=== PATIENT | female | born 1990 | race American Indian/Alaskan Native ===

== ENCOUNTER 2017-08-16 15:23 | Emergency (ER) | payer SELFPAY ==
[2017-08-16 15:30] VITALS: BP 122/79
--- NOTE | 2017-08-16 16:40 | Emergency Department Report ---
HPI - General Chief Complaint: Skin/Abscess/Foreign Body Time Seen by Provider: 08/16/17 15:42 - HPI HPI: 27-year-old female presents today complaining of a possible insect bite to her right upper extremity. Patient states that his is started of his pimple 3 days ago and she tried to pop it. She reports 7 out of 10 pain 2 days and increasing redness and swelling to right forearm. Denies fever, chills, nausea , vomiting, chest pain, shortness of breath, abdominal pain. Denies drainage or bleeding. ED Past Medical Hx - Past Medical History Previous Medical History?: No - Surgical History Past Surgical History?: No - Social History Smoking Status: Current Every Day Smoker Substance Use Type: Alcohol - Medications Home Medications: Home Medications Medication Instructions Recorded Confirmed Last Taken Type Cyclobenzaprine HCl [Flexeril 5mg] 5 mg PO TID #20 tablet 03/28/15 Unknown Rx Ibuprofen [Motrin] 800 mg PO Q8H #30 tablet 03/28/15 Unknown Rx Cephalexin [Keflex] 500 mg PO Q12HR #20 cap 08/16/17 Unknown Rx Sulfamethoxazole/Trimethoprim 1 each PO BID #20 tablet 08/16/17 Unknown Rx [Bactrim DS TAB] traMADol [Ultram 50 MG tab] 50 mg PO Q6HR PRN #14 tablet 08/16/17 Unknown Rx ED Review of Systems ROS: Stated complaint: RIGHT ARM SWOLLEN ,SPIDER BITE Other details as noted in HPI Constitutional: denies: chills, fever, malaise Eyes: denies: eye pain ENT: denies: ear pain, throat pain, congestion Respiratory: denies: cough, shortness of breath, wheezing Cardiovascular: denies: chest pain, palpitations Endocrine: no symptoms reported Gastrointestinal: denies: abdominal pain, nausea, vomiting Skin: lesions Neurological: denies: headache, weakness, numbness, paresthesias Psychiatric: denies: anxiety, depression Physical Exam - Physical Exam Vital Signs: Vital Signs 08/16/17 15:27 Temperature 99 F Pulse Rate 81 Respiratory 18 Rate Blood Pressure 122/79 O2 Sat by Pulse 99 Oximetry Physical Exam: GENERAL: The patient is well-developed and well-nourished. Patient is in NAD. HEAD: Normocephalic. Atraumatic. SKIN: 2 cm in diameter erythema, induration noted of ventral aspect of her right forearm. Not fluctuant. Warm to touch. No drainage or bleeding noted. NECK: Supple, nontender, without lymphadenopathy. No meningitic signs are noted. CHEST/LUNGS: Clear to auscultation throughout. HEART/CARDIOVASCULAR: Regular rate and rhythm. No murmurs, rubs or gallops. ABDOMEN: Abdomen is soft, nontender. Bowel sounds normoactive. No guarding or rebound tenderness. EXTREMITIES: No cyanosis, clubbing or edema. Peripheral pulses intact. Capillary refill less than 2 seconds. NEURO: Alert and oriented x 3. Normal gait. ED Course Vital Signs 08/16/17 15:27 Temperature 99 F Pulse Rate 81 Respiratory 18 Rate Blood Pressure 122/79 O2 Sat by Pulse 99 Oximetry ED Medical Decision Making - Lab Data Vital Signs 08/16/17 15:27 Temperature 99 F Pulse Rate 81 Respiratory 18 Rate Blood Pressure 122/79 O2 Sat by Pulse 99 Oximetry - Medical Decision Making 27-year-old female presents today with an insect bite to her right forearm. On exam there is surrounding erythema, induration in the area is warm to touch. Patient is in no acute distress at this time. She will be discharged home and is encouraged to follow up with a primary care provider. She will be sent home on Bactrim, Keflex and tramadol and is encouraged to return to the emergency room for any worsening symptoms. Critical care attestation.: If time is entered above; I have spent that time in minutes in the direct care of this critically ill patient, excluding procedure time. ED Disposition Clinical Impression: Insect bite Qualifiers: Encounter type: initial encounter Qualified Code(s): W57.XXXA - Bitten or stung by nonvenomous insect and other nonvenomous arthropods, initial encounter Disposition: - TO HOME OR SELFCARE Is pt being admited?: No Does the pt Need Aspirin: No Condition: Stable Instructions: Insect Bite or Sting (ED), Abscess (ED) Additional Instructions: Patient is advised to apply warm compresses to the affected area. Follow-up with primary care provider in 3-5 days. Return to the emergency department if symptoms worsen. Prescriptions: Cephalexin [Keflex] 500 mg PO Q12HR #20 cap Sulfamethoxazole/Trimethoprim [Bactrim DS TAB] 1 each PO BID #20 tablet traMADol [Ultram 50 MG tab] 50 mg PO Q6HR PRN #14 tablet PRN Reason: Pain Referrals: PRIMARY CARE,MD [Primary Care Provider] - 3-5 Days [facility] [Outside] - 3-5 Days Forms: Work/School Release Form(ED), Accompanied Note Time of Disposition: 16:50
== END 2017-08-16 17:01 | disposition home or self-care (01) ==
LOC: ED 15:23
DX: S50.861A Insect bite (nonvenomous) of right forearm, initial encounter (principal); F17.200 Nicotine dependence, unspecified, uncomplicated; W57.XXXA Bitten or stung by nonvenomous insect and other nonvenomous arthropods, initial encounter; Y93.89 Activity, other specified; Y99.8 Other external cause status; Y92.89 Other specified places as the place of occurrence of the external cause
CPT/HCPCS: 99282